=== PATIENT | male | born 1970 | race Caucasian/White ===

== ENCOUNTER 2021-06-21 03:11 | Day surgery (SDC) | payer OTHER, SELFPAY ==
[2021-06-05 13:58] VITALS: BMI 30.5
[2021-06-21 08:25] VITALS: BP 124/87; PULSE 79; RESP 18; TEMP 37.3; O2SAT 99; BMI 30.3
--- NOTE | 2021-06-21 08:41 | WPDANESEPPF ---
Anes - Initial Pre Proc Eval Procedure: Operation Date: 06/21/21 09:30 Proposed Procedures p Screening Colonoscopy - Evgeny Aceves MD Date/Time: 06/21/21 08:41 Surgeon: Evgeny Aceves MD Pre Op Diagnosis: neoplasm screening Patient Data Age: 51 Gender: M Height: 1.83 m Weight: 101.5 kg Last Vital Signs Temp 37.3 C 06/21/21 08:25 Pulse 79 06/21/21 08:25 Resp 18 06/21/21 08:25 BP 124/87 06/21/21 08:25 Pulse Ox 99 06/21/21 08:25 Allergies Allergy/AdvReac Type Severity Reaction Status Date / Time No Known Allergies Allergy Unknown Verified 06/21/21 08:30 Home Medications Medication Instructions Recorded Confirmed Type aspirin 325 mg PO DAILY 06/05/21 06/21/21 History lisinopril 5 mg PO DAILY 06/05/21 06/21/21 History Patient hx anesthesia problems: none Family hx anesthesia problems: none Results Review: All pre-operative results and documents have been reviewed as part of the pre-operative evaluation. [facility] Past Medical History Medical History (Updated 06/21/21 @ 08:41 by Hugo Brownlee MD) HTN (hypertension) Obesity MAEGAN (obstructive sleep apnea) Surgical History Surgical History (Updated 06/21/21 @ 08:42 by Hugo Brownlee MD) H/O arthroscopic knee surgery Family History Family History (Updated 09/03/18 @ 14:39 by DOCTOR UNKNOWN) Father Patient's father is Family history of dementia Social History Social History Smoking status: Never smoker Second hand tobacco smoke exposure: No Alcohol intake: current Drinks per week: 3 Substance use: never Substance use type: does not use Living arrangements: with family Spiritual care concerns: No Anes - Eval Final PreProcedure Day of Procedure 06/21/21 08:41 Patient weight: normal Heart: regular rate and rhythm Lungs: clear to auscultation Airway: Mallampati scale class II Neurological: alert and oriented Last oral intake: >/= 8 hours ASA classification: III Emergent: no Anesthetic plan: proceed Anesthesia type and monitoring: general GIVS and standard monitoring Results Review: All pre-operative results and documents have been reviewed as part of the pre-operative evaluation. Informed Consent: The patient's anesthetic plan and its attendant risks and benefits were discussed with the patient/family/POA. Questions were solicited and answers provided to the satisfaction of the patient/family/POA.
--- NOTE | 2021-06-21 08:51 | PM.HPGS ---
History of Present Illness History of Present Illness Consent: Risks, benefits, and alternatives have been discussed and questions answered. Patient agrees to proceed with procedure. Chief complaint: neoplasm screening Narrative: Jose Luis Hanna is a 51 year old male here for first screening colonoscopy Review of Systems Constitutional: Constitutional: Denies headache(s) and Denies weakness Eyes: Eyes: Denies blurry vision ENT: Reports Normal hearing present, Denies headache(s) and Denies neck pain Cardiovascular: Cardiovascular: Denies chest pain and Denies dyspnea Respiratory: Respiratory: Denies dyspnea Gastrointestinal: Gastrointestinal: Reports no additional gastrointestinal complaints Genitourinary: Genitourinary: Denies dysuria Musculoskeletal: Musculoskeletal: Denies neck pain Integumentary/Breasts: Skin/Breast: Denies dry skin Neurologic: Reports Normal hearing present, Denies headache(s) and Denies weakness Psychiatric: Psychiatric: Denies anxiety Endocrine: Endocrine: Denies change in body appearance Hematologic/Lymphatic: Hematologic/Lymphatic: Denies easy bleeding Allergic/Immunologic: Allergic/Immunologic: Denies urticaria PMF Past Medical History Medical History (Updated 06/21/21 @ 08:51 by Evgeny Aceves MD) Colon cancer screening HTN (hypertension) Obesity MAEGAN (obstructive sleep apnea) Surgical History Surgical History (Updated 06/21/21 @ 08:42 by Hugo Brownlee MD) H/O arthroscopic knee surgery Family History Family History (Updated 09/03/18 @ 14:39 by DOCTOR UNKNOWN) Father Patient's father is Family history of dementia Social History Social History Smoking status: Never smoker Second hand tobacco smoke exposure: No Alcohol intake: current Drinks per week: 3 Substance use: never Substance use type: does not use Living arrangements: with family Spiritual care concerns: No Meds Home Medications and Allergies Home Medications Medication Instructions Recorded Confirmed Type aspirin 325 mg PO DAILY 06/05/21 06/21/21 History lisinopril 5 mg PO DAILY 06/05/21 06/21/21 History Allergies Allergy/AdvReac Type Severity Reaction Status Date / Time No Known Allergies Allergy Unknown Verified 06/21/21 08:30 Vital Signs Vital Signs - 24 hr 06/21/21 08:25 Temperature 99.1 F Pulse Rate 79 Respiratory Rate 18 Blood Pressure 124/87 Pulse Oximetry 99 Exam Const: General: comfortable and no acute distress HENMT: General nose exam: Normal nares present Eyes: General: appearance normal, both eyes and all related structures Neck: Neck: no JVD Resp: Auscultation: clear to auscultation bilaterally Cardio: Rate: regular rate Rhythm: regular rhythm GI: Inspection: non-distended GI Palp: Yes Soft to palpation Skin: General skin exam: normal color Neuro: General: gait normal Speech: normal speech Extrem: General: normal to inspection Psych: Mental Status: mental status grossly normal Assessment and Plan Assessment and plan (1) Colon cancer screening: Code(s): Z12.11 - Encounter for screening for malignant neoplasm of colon Status: Acute Assessment and Plan: colonoscopy
[2021-06-21] MEDS: LACTATED RINGERS 1,000 ML 150 ML IV CONT (08:54)
[2021-06-21 09:11] VITALS: BP 105/63; PULSE 66; RESP 17; O2SAT 98
[2021-06-21 09:21] VITALS: BP 98/65; PULSE 66; RESP 18; O2SAT 98
[2021-06-21 09:31] VITALS: BP 107/67; PULSE 66; RESP 18; O2SAT 99
== END 2021-06-21 09:39 | disposition home or self-care (01) ==
PROVIDERS: Visit Provider Internal Medicine Gastroenterology
PROC: 0DJD8ZZ Inspection of Lower Intestinal Tract, Via Natural or Artificial Opening Endoscopic (ICD-10-PCS; CPT 45378; principal; 2021-06-21 09:30)
DX: Z12.11 Encounter for screening for malignant neoplasm of colon (principal); K64.8 Other hemorrhoids; I10 Essential (primary) hypertension; G47.33 Obstructive sleep apnea (adult) (pediatric); Z79.82 Long term (current) use of aspirin
CPT/HCPCS: 45378; J2001; J2704; J7120

== ENCOUNTER 2021-07-19 13:55 | Outpatient (CLI) | payer OTHER, SELFPAY ==
--- NOTE | ~2021-07-19 | US_ITS ---
EXAMINATION: US venous doppler [facility] EXAM DATE: 07/19/2021 15:22 INDICATION: Left calf pain. TECHNIQUE: Multiple grayscale, color flow and Doppler images of the left lower extremity deep venous system were obtained and reviewed. There is no prior study for comparison. FINDINGS: The left common femoral, femoral and profunda veins demonstrate normal color flow, respirat ory variation, augmentation and compressibility. Compressibility, color flow confirmed within the le ft popliteal, posterior tibial, peroneal, and greater saphenous veins. IMPRESSION: 1. No left lower extremity deep venous thrombosis. Reviewed, dictated and finalized at location A. [employer]
== END 2021-07-19 13:56 | disposition home or self-care (01) ==
PROVIDERS: PCP Nurse Practitioner; Visit Provider Nurse Practitioner
DX: M79.662 Pain in left lower leg (principal)
CPT/HCPCS: 93971

== ENCOUNTER 2021-08-17 00:18 | Emergency (ER) | payer OTHER, SELFPAY ==
[2021-08-17 00:23] VITALS: BP 150/93; PULSE 114; RESP 16; TEMP 36.8; O2SAT 98
[2021-08-17] MEDS: IBUPROFEN 400 MG TABLET 800 MG PO (00:34)
[2021-08-17] MEDS: LIDOCAINE HCL 2% PF INJ 5 ML VIAL 1 ML INFILTRATE (00:35)
--- NOTE | 2021-08-17 00:57 | ED.HEATRA ---
HPI - Head Injury General Chief complaint: Head Injury Stated complaint: Head Lac Time Seen by Provider: 08/17/21 00:20 Source: patient and RN notes reviewed Mode of arrival: ambulatory Limitations: no limitations History of Present Illness Complaint: head injury Onset (ago): hour(s) (1) Arrival Conditions: other (pt slipped on the ice and fell, hitting left eyebrow. no LOC. pt deferred CT head) Mechanism of Injury: fall Place: home Loss of Consciousness: no Location of injury: face Severity: mild Severity scale (1-10): 3 Quality: dull and aching Radiation: none Other Injuries: none Context: on aspirin Associated symptoms: denies other symptoms Related Data Home Medications Medication Instructions Recorded Confirmed aspirin 325 mg PO DAILY 06/05/21 06/21/21 lisinopril 5 mg PO DAILY 06/05/21 06/21/21 Allergies Allergy/AdvReac Type Severity Reaction Status Date / Time No Known Allergies Allergy Unknown Verified 08/17/21 00:37 Review of Systems Review of Systems: All systems reviewed & are unremarkable except as noted in HPI and below PMFSH Past Medical History Medical History Closed head injury Colon cancer screening Eyebrow laceration HTN (hypertension) Obesity MAEGAN (obstructive sleep apnea) Surgical History Surgical History H/O arthroscopic knee surgery Family History Family History Father Patient's father is Family history of dementia Social History Social History Smoking status: Never smoker Second hand tobacco smoke exposure: No Alcohol intake: current Drinks per week: 3 Substance use: never Substance use type: does not use Spiritual care concerns: No Exam Const: General: no acute distress and alert Nutritional Appearance: well nourished Orientation/consciousness: patient oriented x3 Limitations: no limitations HENMT: Head: laceration (left eyebrow 2.4 cm well approximated linear laceration. not bleeding) General nose exam: Normal external nose present and Normal nares present Mouth: Yes lip normal and Yes moist mucous membranes Throat: posterior oropharynx normal Eyes: Conjunctivae: conjunctivae normal Pupils: Equal, round and reactive pupils present EOM: EOMs intact bilaterally Neck: Neck: normal visual inspection Chest: Chest palpation & inspection: normal inspection of the chest Resp: Effort & Inspection: normal respiratory effort Auscultation: clear to auscultation bilaterally Cardio: Rate: regular rate Rhythm: regular rhythm GI: GI Palp: Yes Soft to palpation and No Tenderness to palpation present (GI) Auscultation: normal bowel sounds : General: Yes bladder normal to palpation and Yes no CVA tenderness Male General Exam: Yes normal external exam Back/Spine/Pelvis: Back: no CVA tenderness Skin: General skin exam: normal color Neuro: General: patient oriented x3, moves all extremities, no meningeal signs and no focal motor deficits Cranial nerves: Yes CN's II-XII intact bilaterally Extrem: General: normal to inspection and no pedal edema Psych: Appearance: grossly normal and well kempt Mental Status: mental status grossly normal Affect: normal affect Attitude: cooperative Thought content: Yes Normal thought content present Course Course Emergency Course: Pt was stable with less facial pain. Reevaluation(s) Reevaluation #1: VSS. post lac repair pt wanted to go home w/o CT head and facial bones. Date: 08/17/21 Time: 00:53 Vital Signs Vital signs: Vital Signs Temperature 36.8 C 08/17/21 00:23 Pulse Rate 114 H 08/17/21 00:23 Respiratory Rate 16 08/17/21 00:23 Blood Pressure 150/93 H 08/17/21 00:23 Pulse Oximetry 98 08/17/21 00:23 Temperature 36.8 C 08/17/21 00:23 Pulse Rate 114
[2021-08-17] MEDS: NEOMYCIN/POLYMYXIN/BACITRACIN OINTMENT 15 GM TUBE 1 APPLIC (01:02)
[2021-08-17 01:07] VITALS: BP 153/93; PULSE 99; RESP 16; TEMP 36.7; O2SAT 98
== END 2021-08-17 01:08 | disposition home or self-care (01) ==
PROVIDERS: Emergency Provider Emergency Medicine; PCP Nurse Practitioner
DX: S09.90XA Unspecified injury of head, initial encounter (principal); S01.112A Laceration without foreign body of left eyelid and periocular area, initial encounter; W00.0XXA Fall on same level due to ice and snow, initial encounter
CPT/HCPCS: 12011; 99283; A9270

== ENCOUNTER 2022-03-11 20:04 | Emergency (ER) | payer OTHER, SELFPAY ==
[2022-03-11] VITALS (9 sets, daily range): BP systolic 144–153; BP diastolic 89–94; PULSE 67–82; RESP 11–23; TEMP 36.3; O2SAT 95–100
--- NOTE | ~2022-03-11 | CT_ITS ---
EXAMINATION: CT cervical spine wo con DATE: 03/11/2022 21:37 INDICATION: trauma, hit by cow TECHNIQUE: Computed tomography (CT) of the cervical spine was performed without intravenous contrast. Automated exposure control and iterative reconstruction technique were employed. The dose-length pro duct was 596.77 mGy-cm. COMPARISON: MR cervical spine 07/08/2012 FINDINGS: Vertebral Body Alignment: Intact. Craniocervical and atlantoaxial alignment: Moderate degenerative change. Alignment intact. Osseous structures/fracture: No evidence of a lytic or blastic process in the visualized spine. No e vidence of acute fracture. Remote suboccipital decompression. Cervical soft tissues: The paraspinal soft tissues planes are maintained. Degenerative changes: Multilevel degenerative disc disease in the lower cervical spine. Multilevel mi ld to moderate facet arthropathy. Severe left neural foraminal narrowing at C5-6 and C6-7. Moderate c entral canal narrowing at C5-6 and C6/7. IMPRESSION: No acute fracture or traumatic malalignment in the cervical spine. Reviewed, dictated and finalized at location K.
--- NOTE | ~2022-03-11 | CT_ITS ---
EXAMINATION: CT brain wo con DATE: 03/11/2022 21:34 INDICATION: trauma . TECHNIQUE: Computed tomography (CT) of the head was performed without intravenous contrast. The mA wa s adjusted according to patient size. Iterative reconstruction technique was employed. The dose-lengt h product was 605.33 mGy-cm. COMPARISON: None FINDINGS: No acute intracranial hemorrhage or extra-axial fluid collection. No hydrocephalus, mass, or herniation. No acute ischemic infarct. Unremarkable dural venous sinus attenuation. No acute osseous abnormality. The aerated spaces are clear. Minimal intracranial vascular calcification IMPRESSION: No acute intracranial process. Reviewed, dictated and finalized at location K.
--- NOTE | ~2022-03-11 | CT_ITS ---
EXAMINATION: CT chest abdomen pelvis w con DATE: 03/11/2022 21:44 INDICATION: hit by cow . TECHNIQUE: Computed tomography (CT) of the chest, abdomen, and pelvis was performed with 100 mL Omnip aque-350 intravenous contrast. Automated exposure control and iterative reconstruction technique were employed. The dose-length product was 1682.15 mGy-cm. COMPARISON: None FINDINGS: CHEST: No thoracic aortic injury. No mediastinal hematoma. No pericardial effusion. No acute lung injury. No pleural effusion or pneumothorax. ABDOMEN/PELVIS: No solid organ injury. No evidence of bowel or mesenteric injury. No free fluid or free air. No retroperitoneal hematoma. Pelvic contents are atraumatic. MUSCULOSKELETAL: No acute fracture. No fracture or traumatic malalignment of the thoracic or lumbar spine. IMPRESSION: No acute process detected in the chest, abdomen, or pelvis. Reviewed, dictated and finalized at location K.
--- NOTE | ~2022-03-11 | XR_ITS ---
EXAM: XR knee RT 3V DATE: 03/11/2022 22:33 HISTORY: pain status post cow injury . COMPARISON: 09/10/2015. FINDINGS: Normal mineralization. No fracture or dislocation. No lytic or blastic lesion. Tricompartm ental osteoarthritis. No erosion or periosteal change. Soft tissues within normal limits. IMPRESSION: No acute osseous finding in the right knee. Reviewed, dictated and finalized at location K.
--- NOTE | 2022-03-11 20:53 | ED.GENADULT ---
HPI - General Adult General Chief complaint: Fall Stated complaint: fall, back pain lip lac Time Seen by Provider: 03/11/22 20:24 History of Present Illness HPI narrative: Patient is a 51-year-old gentleman who presents the emergency department with chief complaint of his back out the patient reports that he was loading cattle and a cow charged toward him he had a gait pushed him backwards and he flew into another gait about 3 feet behind him patient reports no loss of consciousness but reports that he has neck pain headache and reports pain throughout his torso and back the patient states that he has history of factor V Leiden is currently just on full-strength aspirin and not on anticoagulants. The patient states that he has a small laceration in his mouth and reports that he is up-to-date on his tetanus. The patient denies focal neurological deficits denies nausea or vomiting. Related Data Home Medications Medication Instructions Recorded Confirmed aspirin 325 mg capsule 325 mg PO DAILY 06/05/21 08/17/21 lisinopril 5 mg tablet 5 mg PO DAILY 06/05/21 08/17/21 Allergies Allergy/AdvReac Type Severity Reaction Status Date / Time No Known Allergies Allergy Unknown Verified 03/11/22 20:15 Review of Systems Review of Systems: A 10 system review of systems was completed on the patient and is negative except for what is stated in the HPI. Nursing and ancillary documentation was reviewed. PMFSH Past Medical History Medical History Closed head injury Colon cancer screening Eyebrow laceration HTN (hypertension) Obesity MAEGAN (obstructive sleep apnea) Surgical History Surgical History H/O arthroscopic knee surgery Family History Family History Father Patient's father is Family history of dementia Social History Social History Smoking status: Never smoker Second hand tobacco smoke exposure: No Alcohol intake: current Drinks per week: 3 Substance use: never Substance use type: does not use Spiritual care concerns: No Exam Narrative: GENERAL: Well-appearing, well-nourished, and in no acute distress. HEAD: Normocephalic, atraumatic. EYES: PERRLA and EOMI. ENT: Nares clear, no rhinorrhea or epistaxis. Mucous membranes moist. NECK: Supple. CHEST: Clear to auscultation. No respiratory distress. HEART: Regular rate and rhythm. No murmur heard. Normal peripheral pulses. ABDOMEN: Soft, nontender, nondistended, normal active bowel sounds. EXTREMITIES: Normal range of motion. No edema. SKIN: Warm, dry, no rash. NEURO: No focal deficits. Alert and oriented x3. PSYCH: Normal mood and affect. Course Vital Signs Vital signs: Vital Signs Temperature 36.3 C L 03/11/22 20:10 Pulse Rate 82 03/11/22 20:10 Respiratory Rate 20 03/11/22 20:10 Blood Pressure 153/92 H 03/11/22 20:10 Pulse Oximetry 95 03/11/22 20:10 Oxygen Delivery Room Air 03/11/22 20:10 Temperature 36.3 C L 03/11/22 20:10 Pulse Rate 70 03/11/22 21:01 Respiratory Rate 23 H 03/11/22 21:01 Blood Pressure 149/92 H 03/11/22 21:01 Pulse Oximetry 99 03/11/22 21:01 Oxygen Delivery Room Air 03/11/22 20:10 Medical Decision Making Vital Signs Vital Signs: Vital Signs Temperature 36.3 C L 03/11/22 20:10 Pulse Rate 82 03/11/22 20:10 Respiratory Rate 20 03/11/22 20:10 Blood Pressure 153/92 H 03/11/22 20:10 Pulse Oximetry 95 03/11/22 20:10 Oxygen Delivery Room Air 03/11/22 20:10 Temperature 36.3 C L 03/11/22 20:10 Pulse Rate 70 03/11/22 21:01 Respiratory Rate 23 H 03/11/22 21:01 Blood Pressure 149/92 H 03/11/22 21:01 Pulse Oximetry 99 03/11/22 21:01 Oxygen Delivery Room Air 03/11/22 20:10 Lab Data Result
[2022-03-11 20:56] LABS: Basophils Percent Auto 0.4 % (0.2-1.2); Eosinophils Absolute Auto 0.1 K/mm3 (0-0.3); Eosinophils Percent Auto 1.2 % (0-4.4); Hematocrit 43.8 % (42.0-52.0); Hemoglobin 14.7 g/dL (14.0-18.0); Immature Granulocyte Absolute 0.04 K/mm3 (0.00-0.031); Immature Granulocyte Percent A 0.4 % (0-0.5); Lymphocytes Absolute Auto 1.79 K/mm3 (0.9-3.2); Lymphocytes Percent Auto 19.3 % (18.3-44.2); Mean Corpuscular HGB Conc 33.6 g/dl (32-36); Mean Corpuscular Hemoglobin 30.3 pg (26-34); Mean Corpuscular Volume 90.3 fl (80-100); Mean Platelet Volume 9.2 fl (7.4-10.4); Monocytes Absolute Auto 0.8 K/mm3 (0.1-0.6); Monocytes Percent Auto 8.6 % (2.6-8.5); Neutrophils Absolute Auto 6.5 K/mm3 (1.3-6.7); Neutrophils Percent Auto 70.1 % (45.5-73.1); Platelet Count Result 231 k/mm3 (150-375); Red Blood Count 4.85 M/mm3 (4.6-6.20); Red Cell Distribution Width 12.3 % (11.5-14.5); White Blood Count 9.3 K/mm3 (4.5-10.0)
[2022-03-11] MEDS: ONDANSETRON INJ 4 MG/2 ML VIAL IV PUSH (21:03)
[2022-03-11] MEDS: MORPHINE SULFATE (*CRX) 4 MG/ML INJ IV PUSH ×2 (21:04→22:41)
[2022-03-11 21:11] LABS: Alanine Aminotransferase 28 U/L (6-50); Albumin Level 4.3 g/dL (3.5-5.1); Alkaline Phosphatase 62 U/L (38-126); Anion Gap 9 mmol/L (8-16); Aspartate Amino Transferase 39 U/L (17-59); Bilirubin,Total 0.7 mg/dL (0.2-1.3); Blood Urea Nitrogen 12 mg/dL (9-20); Calcium 8.9 mg/dL (8.4-10.2); Carbon Dioxide 27 mmol/L (22-30); Chloride 99 mmol/L (98-107); Estimated CRCL calculation 96 ml/min; Estimated Glomerular Filt Rate > 60; Glucose 103 mg/dL (65-110); Lactic Acid Reflex 0.6 mmol/L (0.7-2.0); Magnesium 2.3 mg/dL (1.6-2.3); Potassium 4.1 mmol/L (3.4-5.0); Sodium 135 mmol/L (137-145)
[2022-03-11 21:12] LABS: Add Urine Microscopic? NO; Appearance Urine Clear (Clear); Bilirubin Urine Negative (Negative); Blood Urine Negative (Negative); Color Urine Yellow (Yellow); Glucose Urine UA Negative (Negative); Ketones Urine Negative (Negative); Leukocyte Esterase Ur Negative LEU/UL (Negative); Nitrate Urine Negative (Negative); Protein Urine Negative (Negative); Urobilinogen Urine 0.2 mg/dL (<2.0)
[2022-03-11 21:13] LABS: INR 1.1; Partial Thromboplastin Time 28.1 SECONDS (22.3-36.8); Prothrombin Time 13.4 Seconds (11.1-14.7)
[2022-03-11 21:15] LABS: Mucus Urine Rare /lpf; RBC Urine 0-2 /hpf (0-2); WBC Urine 0-3 /hpf
== END 2022-03-11 23:52 | disposition home or self-care (01) ==
PROVIDERS: Emergency Provider Emergency Medicine; PCP Nurse Practitioner
DX: S01.512A Laceration without foreign body of oral cavity, initial encounter (principal); T14.8XXA Other injury of unspecified body region, initial encounter; S16.1XXA Strain of muscle, fascia and tendon at neck level, initial encounter; S20.219A Contusion of unspecified front wall of thorax, initial encounter; M25.561 Pain in right knee; I10 Essential (primary) hypertension; W20.8XXA Other cause of strike by thrown, projected or falling object, initial encounter
CPT/HCPCS: 36415; 70450; 71260; 72125; 73562; 74177; 80053; 81003; 83605; 83735; 85025; 85610; 85730; 96374; 96375; 96376; 99284; J2270; J2405; Q9967

== ENCOUNTER 2023-09-20 19:20 | Emergency (ER) | payer OTHER, SELFPAY ==
[2023-09-20 19:38] VITALS: BP 148/109; PULSE 91; RESP 16; TEMP 36.8; O2SAT 98
--- NOTE | 2023-09-20 20:19 | ED.WOUNDLAC ---
HPI - Wound/Laceration General Chief Complaint: Wound/Laceration Stated Complaint: left index laceration Time Seen by Provider: 09/20/23 20:00 Source: patient Mode of arrival: ambulatory Limitations: no limitations History of Present Illness HPI narrative: 53-year-old male presented for complaint of laceration to the left index finger. States he cut the finger with a knife while carving a turkey. Cut the finger between the knuckles per pt. Denies decreased range of motion to the finger. No treatment prior to arrival. Tetanus in 2019. Related Data Home Medications Medication Instructions Recorded Confirmed aspirin 325 mg capsule 325 mg PO DAILY 06/05/21 09/20/23 lisinopril 5 mg tablet 5 mg PO DAILY 06/05/21 09/20/23 Allergies Allergy/AdvReac Type Severity Reaction Status Date / Time No Known Allergies Allergy Unknown Verified 03/11/22 20:15 Review of Systems Review of Systems: CONSTITUTIONAL: Denies body aches, fever, chills, or sweats. EYES: Denies visual changes, redness, or discharge. ENT: Denies rhinorrhea, congestion CARDIOVASCULAR: Denies chest pain, palpitations, or edema. RESPIRATORY: Denies cough or dyspnea. GASTROINTESTINAL: Denies abdominal pain, nausea, vomiting, or diarrhea. SKIN: Finger laceration to left index MUSCULOSKELETAL: Denies back pain, joint pain, or myalgia. NEUROLOGIC: Denies headache, numbness, tingling, or weakness. [facility] Past Medical History Medical History Closed head injury Colon cancer screening Eyebrow laceration HTN (hypertension) Obesity MAEGAN (obstructive sleep apnea) Surgical History Surgical History H/O arthroscopic knee surgery Family History Family History Father Patient's father is Family history of dementia Social History Social History Smoking status: Never smoker Second hand tobacco smoke exposure: No Alcohol intake: current Drinks per week: 3 Substance use: never Substance use type: does not use Living arrangements: with family Spiritual care concerns: No Comments At time of signature, I have reviewed and agree with nursing past medical, surgical, social and family history unless otherwise noted. Please see nursing chart for further information. There is no relevant family history pertinent to the presenting complaint Exam Narrative: GENERAL: Well-appearing HEAD: Normocephalic, atraumatic. EYES: conjunctivae clear, and EOMI. ENT: Mucous membranes moist. Oropharynx without edema, erythema or lesions. NECK: Supple. No lymphadenopathy CHEST: Clear to auscultation. HEART: Regular rate and rhythm. SKIN: Warm, dry. 2 cm linear laceration to the left index finger middle phalanx, scant active bleeding. NEURO: Alert and oriented x3. Course Course Emergency Course: Patient is aware of diagnosis, understands and agrees to treatment plan. Anticipatory guidance given. Patient agrees to follow-up as directed and is aware of reasons to seek care at the emergency department. Portions of this record may have been created with voice recognition software Level of Care: Express Care Visit Vital Signs Vital signs: Vital Signs Temperature 98.3 F 09/20/23 19:38 Pulse Rate 91 09/20/23 19:38 Respiratory Rate 16 09/20/23 19:38 Blood Pressure 148/109 H 09/20/23 19:38 Pulse Oximetry 98 09/20/23 19:38 Temperature 98.3 F 09/20/23 19:38 Pulse Rate 91 09/20/23 19:38 Respiratory Rate 16 09/20/23 19:38 Blood Pressure 148/109 H 09/20/23 19:38 Pulse Oximetry 98 09/20/23 19:38 Reviewed Procedures Laceration Left 2nd digit: Date: 09/20/23 Size (cm): 2 Description: linear and clean Depth: simple, single layer Local Anesthetic: lido
== END 2023-09-20 20:24 | disposition home or self-care (01) ==
PROVIDERS: Emergency Provider Nurse Practitioner Family; PCP Nurse Practitioner
DX: S61.211A Laceration without foreign body of left index finger without damage to nail, initial encounter (principal); W26.0XXA Contact with knife, initial encounter; I10 Essential (primary) hypertension; E66.9 Obesity, unspecified; Z68.31 Body mass index [BMI] 31.0-31.9, adult
CPT/HCPCS: 12001; 99213; G0463

== ENCOUNTER 2023-11-23 07:52 | Outpatient (RCR) | payer OTHER, SELFPAY ==
--- NOTE | 2023-11-23 08:18 | OPREHPOC ---
Outpatient Therapy Plan of Care This is a Multidisciplinary Plan of Care that may contain components documented by all disciplines (PT, OT, and ST.) PT Problem 1 PT Problem #1 Knowledge Deficit PT Goal 1 Goal Patient to demonstrate independence with HEP Target Visit 5 PT Problem 2 PT Problem #2 Pain PT Goal 1 Goal Patient to report highest pain at 2/10 Target Visit 10 PT Problem 3 PT Problem #3 Impaired Strength PT Goal 1 Goal 1. patient to demonstrate 5/5 strength of the R knee to improve ability to ambulate prolonged distances 2. patient to demonstrate 10 squats with no R knee pain to return to gardening Target Visit 10 PT Problem 4 PT Problem #4 Impaired Functional Mobil PT Goal 1 Goal 1. patient to improve LEFS by 20% 2. patient to navigate 1 flight of stairs with no giving out or increase in pain 3. patient to report ability to drive 1 hour with no R knee pain Target Visit 10
--- NOTE | 2023-11-23 08:18 | PTOPEVAL1 ---
Assessment and note entered by Ashley Elder DPT Evaluation Information Assessment Status Evaluation Diagnosis R knee pain Onset 11/18/23 Subjective Information Patient reports he has R knee pain in the back of the R knee. he report pain over the last few months has increased. he reports he had a meniscectomy in 2014 and the pain feels similar. the knee specialist said it is not to the point of surgery. he reports he has gotten he has gotten injections and that has helped arthritis pain and that was in Aug. he reports that getting up from a chair, driving, and standing for a long period of time increases pain. he reports it has given out once in a while when going up/down stairs. 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 Reported Pain Level Pain Score 1: Self Report Assessment PT Clinical Summary Mr. Hanna is a 53 year old male who presents to PT with R knee pain. He demonstrates decreased R LE strength, decreased B HS flexibility and tenderness to the R knee medial joint line indicating medial meniscus involvement. He has difficulty with getting up out of a chair, navigating stairs, driving and ambulating prolonged distances. He would benefit from skilled PT to address impairments and return to PLOF. Plan of Care Interventions Electrical Stimulation,Gait Training,Hot Pack/Cold Pack,Manual Therapy,Neuro Re-education,Patient/ Caregiver Educati,Therapeutic Activities, Therapeutic Exercise PT Services Indicated Yes Treatment Frequency and 2x weekly for 10 visits Duration These treatments will address the objective and functional deficits as defined above. The patient will be advanced safely and appropriately in order for the patient to progress towards his/her prior level of function. Additional exercises will be introduced and as well as a comprehensive home exercise program upon discharge, if needed, ?to ensure carryover of functional gains achieved in the clinic. This treatment plan has been reviewed and agreement upon by the patient.
--- NOTE | 2023-11-30 16:29 | PCPTNOTE ---
Pt. did not show for his scheduled appointment. Attempted to contact the pt. via phone, but no response. Jose Luis Garcia, MPT
--- NOTE | 2023-12-02 17:30 | PCPTNOTE ---
Mr. Hanna failed to return to the clinic following his initial evaluation. Refer to initial evaluation for discharge status. Jose Luis Garcia, MPT
== END 2023-11-23 20:00 | disposition home or self-care (01) ==
LOC: CHSPT 07:52
PROVIDERS: Visit Provider Family Medicine Sports Medicine
DX: M17.11 Unilateral primary osteoarthritis, right knee (principal); M25.561 Pain in right knee
CPT/HCPCS: 97014; 97110; 97161; G0283

== ENCOUNTER 2024-03-05 10:36 | Emergency (ER) | payer OTHER, SELFPAY ==
--- NOTE | 2024-03-05 10:42 | ED.BACK ---
HPI - Back Pain/Injury General Chief Complaint: Back Pain/Injury Stated Complaint: lower back pain Time Seen by Provider: 03/05/24 10:44 Source: patient Mode of arrival: ambulatory Limitations: no limitations History of Present Illness HPI Narrative: Jose Luis is a 53-year-old male patient presenting to the clinic today with complaints of right upper buttock pain-swelling that started on . He reports no fever or chills. States the pain has gotten so bad he is unable to sit down. Denies any draining. No history of MRSA, pilonidal cyst, or Reji gangrene. Related Data Home Medications Medication Instructions Recorded Confirmed aspirin 325 mg capsule 325 mg PO DAILY 06/05/21 03/05/24 lisinopril 5 mg tablet 5 mg PO DAILY 06/05/21 03/05/24 Allergies Allergy/AdvReac Type Severity Reaction Status Date / Time No Known Allergies Allergy Unknown Verified 03/05/24 10:50 Review of Systems Review of Systems: Pertinent positives per HPI. Patient denies any fever, chills, rash, headache, visual changes, dizziness, cough, runny nose, sore throat, shortness of breath, chest pain, palpitations, nausea, vomiting, diarrhea, constipation, abdominal pain, or any urinary issues. [facility] Past Medical History Medical History Closed head injury Colon cancer screening Eyebrow laceration HTN (hypertension) Obesity MAEGAN (obstructive sleep apnea) Surgical History Surgical History H/O arthroscopic knee surgery Family History Family History Father Patient's father is Family history of dementia Social History Social History Smoking status: Never smoker Second hand tobacco smoke exposure: No Alcohol intake: current Drinks per week: 3 Substance use: never Substance use type: does not use Living arrangements: with family Spiritual care concerns: No Comments At the time of my signature, I reviewed and agree with the nursing past medical, surgical, social, and family history. There is no relevant family history pertinent to the patient complaint. Exam Narrative: General: Well-developed, well nourished, in no apparent distress Head: Normocephalic, atraumatic. Cardio: Regular rate and rhythm, s1 and s2 normal, no murmur appreciated. Resp: Clear to auscultation bilaterally, no rhonchi, rales, wheezing or rubs. Integumentary: [place], warm, and dry, right upper buttocks cellulitis-non fluctuance/firm with erythema and tenderness to palpation. No drainage. Area of induration approximate measuring 6 cm x 4 cm-cellulitis does not cross over to the left buttock Course Course Emergency Course: Portions of this record may have been created with voice recognition software. Level of Care: Express Care Visit Vital Signs Vital signs: Vital Signs Temperature 36.6 C 03/05/24 10:49 Pulse Rate 99 03/05/24 10:49 Respiratory Rate 16 03/05/24 10:49 Blood Pressure 132/74 03/05/24 10:49 Pulse Oximetry 99 03/05/24 10:49 Temperature 36.6 C 03/05/24 10:52 Pulse Rate 99 03/05/24 10:52 Respiratory Rate 16 03/05/24 10:52 Blood Pressure 132/74 03/05/24 10:52 Pulse Oximetry 99 03/05/24 10:52 Vital signs reviewed MDM - Back Pain/Injury MDM Narrative Medical decision making narrative: At the time of visit patient is resting comfortably on the exam table. Patient appears to be nontoxic. Plan: I suspect patient has right buttock cellulitis without palpable abscess. Prescription for clindamycin was sent to the pharmacy. Risk factors for Reji's disease/worsening of symptoms was reviewed with the patient and he voiced understanding. Supportive measures were discussed with the patient and they voiced understanding discharge instruction
[2024-03-05 10:49] VITALS: BP 132/74; PULSE 99; RESP 16; TEMP 36.6; O2SAT 99
[2024-03-05 10:52] VITALS: BP 132/74; PULSE 99; RESP 16; TEMP 36.6; O2SAT 99
== END 2024-03-05 11:06 | disposition home or self-care (01) ==
PROVIDERS: Emergency Provider Nurse Practitioner Family; PCP Nurse Practitioner
DX: L03.317 Cellulitis of buttock (principal); I10 Essential (primary) hypertension; E66.9 Obesity, unspecified; Z68.31 Body mass index [BMI] 31.0-31.9, adult; Z79.82 Long term (current) use of aspirin
CPT/HCPCS: 99213; G0463